=== PATIENT | male | born 1980 | race Caucasian/White ===

== ENCOUNTER → 2017-08-15 | Outpatient (CLI) | payer BC ==
--- NOTE | 2017-08-15 09:00 | US ---
EXAMINATION TYPE: US abdomen complete DATE OF EXAM: 08/15/2017 COMPARISON: NONE CLINICAL HISTORY: rt upper quad pain R10.11. Patient stated was told he had elevated liver function t ests; on medication for antiseizure and low dose antihypertension EXAM MEASUREMENTS: Liver Length: 17.2 cm Gallbladder Wall: 0.2 cm CBD: 0.3 cm Spleen: 11.2 cm Right Kidney: 11.1 x 6.5 x 4.5 cm Left Kidney: 12.2 x 7.3 x 5.1 cm Pancreas: hyperechoic with hypoechoic and heterogeneous area mid pancreas = 1.6 x 2.2 x 0.7cm Liver: hyperechoic to right renal cortex suggests fatty liver Gallbladder: wnl Evidence for sonographic Silver's sign: No CBD: wnl Spleen: wnl Right Kidney: wnl Left Kidney: wnl Upper IVC: wnl Abd Aorta: wnl IMPRESSION: 1. There is a subtle hypoechoic area within the pancreas. Additional evaluation with contrast CT is r ecommended. Neoplasm is not excluded at this time.
== END | disposition home or self-care (01) ==
LOC: RADUSWWP 08:11
PROVIDERS: ATTEND Family Medicine
DX: R10.11 Right upper quadrant pain (principal)
CPT/HCPCS: 76700

== ENCOUNTER → 2017-09-04 | Outpatient (CLI) | payer BC ==
--- NOTE | 2017-09-04 13:04 | CT ---
EXAMINATION TYPE: CT abdomen w con DATE OF EXAM: 09/04/2017 COMPARISON: 08/15/2017 abdominal ultrasound. HISTORY: Elevated Liver Enzymes; Possible pancreas neoplasm CT DLP: 731.7 mGycm Automated exposure control for dose reduction was used. TECHNIQUE: Helical acquisition of images was performed from the lung bases through the top of iliac crest to include entire abdomen. CONTRAST: Performed with Oral Contrast and with IV Contrast, patient injected with 100 Ml mL of Isovue 300. FINDINGS: LUNG BASES: No significant abnormality is appreciated. LIVER/GB: Hepatic parenchyma is diffusely hypoattenuated in comparison to that of the spleen, most co mmonly seen in hepatic steatosis. This finding limits evaluation for hepatic masses. No gross evidenc e of hepatic mass is seen. No intrahepatic biliary ductal dilatation. No cholelithiasis PANCREAS: Pancreas enhances homogeneously. There is slight prominence of the pancreatic body of an ex ophytic portion of parenchyma towards the pancreatic tail on series 3 image 61 and prominence of the pancreatic head abutting the descending duodenum, however enhancement is again homogeneous without fo liz lesion or ductal dilatation identified. No peripancreatic fluid or fat stranding. No peripancreat ic adenopathy. No pancreatic calcifications. SPLEEN: Spleen is enlarged measuring 15.0 cm in anterior posterior dimension. ADRENALS: Adrenal glands demonstrate no evidence of nodule. KIDNEYS: Kidneys enhance symmetrically without hydronephrosis. BOWEL: No large or small bowel dilatation is seen. LYMPH NODES: No greater than 1 cm short axis lymph node within the abdomen or pelvis. OSSEOUS STRUCTURES: No significant abnormality is seen. FREE AIR: No free air is visualized. IMPRESSION: 1. NO EVIDENCE OF ABNORMAL PANCREATIC ENHANCEMENT OR DUCTAL DILATATION TO SUGGEST PANCREATIC MASS. PA NCREAS IS UNREMARKABLE ON CT. 2. HEPATIC STEATOSIS. 3. SPLENOMEGALY.
== END ==
LOC: RADCTMAIN 11:28
PROVIDERS: ATTEND Family Medicine
DX: D49.0 Neoplasm of unspecified behavior of digestive system (principal); K76.0 Fatty (change of) liver, not elsewhere classified; R16.1 Splenomegaly, not elsewhere classified
CPT/HCPCS: 74160; Q9967

== ENCOUNTER 2017-11-07 13:25 | Emergency (ER) | payer BC ==
[2017-11-07] MEDS ORDERED: SODIUM CHLORIDE 0.9% 500 ML IV STA (13:40)
[2017-11-07 13:52] LABS: Basophils % (A) 1 %; Eosinophils # (A) 0.1 k/uL (0-0.7); Eosinophils % (A) 2 %; HCT 47.5 % (39.0-53.0); HGB 16.9 gm/dL (13.0-17.5); Lymphocytes # (A) 1.3 k/uL (1.0-4.8); Lymphocytes % (A) 27 %; MCH 32.7 pg (25.0-35.0); MCHC 35.6 g/dL (31.0-37.0); MCV 91.9 fL (80.0-100.0); Mean Platelet Volume 6.9; Monocytes # (A) 0.2 k/uL (0-1.0); Monocytes % (A) 4 %; Neutrophils # (A) 3.2 k/uL (1.3-7.7); Neutrophils % (A) 65 %; Platelet Count 167 k/uL (150-450); RBC 5.17 m/uL (4.30-5.90); RDW 12.5 % (11.5-15.5); WBC 4.8 k/uL (3.8-10.6)
[2017-11-07 14:02] LABS: ALT 96 U/L (21-72); AST 110 U/L (17-59); Albumin 4.8 g/dL (3.5-5.0); Alkaline Phosphatase 73 U/L (38-126); Anion Gap 12 mmol/L; Blood Urea Nitrogen 9 mg/dL (9-20); Calcium 9.7 mg/dL (8.4-10.2); Carbon Dioxide 22 mmol/L (22-30); Chloride 108 mmol/L (98-107); Glucose 120 mg/dL (74-99); Potassium 3.8 mmol/L (3.5-5.1); Sodium 142 mmol/L (137-145); Total Bilirubin 0.8 mg/dL (0.2-1.3); Total Protein 7.6 g/dL (6.3-8.2)
[2017-11-07 14:21] LABS: Carbamazepine (Tegretol) <3.0 ug/mL
--- NOTE | 2017-11-07 14:52 | ED ---
Seizure HPI - General Chief Complaint: Seizure Stated Complaint: seizure Time Seen by Provider: 11/07/17 13:40 Source: patient, family, RN notes reviewed Mode of arrival: ambulatory Limitations: no limitations - History of Present Illness Initial Comments: 37-year-old male presents emergency department for seizure. Patient has known history of seizures, sees Dr. Perry. Patient states that he felt that he doesn 't have seizure and his started shaking him. Patient states that is not believe he had a full seizure. Patient denies any current complaints including headache, dizziness, chest pain, shortness breath, nausea, vomiting diarrhea constipation. Patient states that he does take Tegretol. Patient denies missing any doses. Patient offers no complaints. - Related Data Home Medications Medication Instructions Recorded Confirmed OXcarbazepine [Trileptal] 300 mg PO BID@1200,2130 11/07/17 11/07/17 Vitamin B Complex 1 cap PO DAILY@1530 11/07/17 11/07/17 amLODIPine [Norvasc] 10 mg PO DAILY@1200 11/07/17 11/07/17 Allergies Allergy/AdvReac Type Severity Reaction Status Date / Time divalproex sodium AdvReac SEE Verified 11/07/17 14:31 [From Depakote] COMMENTS Review of Systems ROS Statement: Those systems with pertinent positive or pertinent negative responses have been documented in the HPI. ROS Other: All systems not noted in ROS Statement are negative. Past Medical History Past Medical History: Seizure Disorder History of Any Multi-Drug Resistant Organisms: None Reported Past Surgical History: No Surgical Hx Reported Past Psychological History: No Psychological Hx Reported Smoking Status: Current every day smoker Past Alcohol Use History: Daily Past Drug Use History: None Reported General Exam Limitations: no limitations General appearance: alert, in no apparent distress Head exam: Present: atraumatic, normocephalic, normal inspection Eye exam: Present: normal appearance, PERRL, EOMI. Absent: scleral icterus, conjunctival injection, periorbital swelling ENT exam: Present: normal exam, normal oropharynx, mucous membranes moist, TM's normal bilaterally Neck exam: Present: normal inspection, full ROM. Absent: tenderness, meningismus, lymphadenopathy Respiratory exam: Present: normal lung sounds bilaterally. Absent: respiratory distress, wheezes, rales, rhonchi, stridor Cardiovascular Exam: Present: regular rate, normal rhythm, normal heart sounds. Absent: systolic murmur, diastolic murmur, rubs, gallop, clicks GI/Abdominal exam: Present: soft, normal bowel sounds. Absent: distended, tenderness, guarding, rebound, rigid Neurological exam: Present: alert, oriented X3, CN II-XII intact, reflexes normal. Absent: motor sensory deficit Skin exam: Present: warm, dry, intact, normal color. Absent: rash Course Vital Signs 11/07/17 13:32 Temperature 97.6 F Pulse Rate 106 H Respiratory 20 Rate Blood Pressure 162/93 O2 Sat by Pulse 94 L Oximetry Medical Decision Making - Medical Decision Making 37-year-old male presented for seizure. He does have a known history of seizures. Patient is stable at this time he'll be discharged with follow-up with his neurologist. - Lab Data Result diagrams: 11/07/17 13:39 11/07/17 13:39 Lab Results 11/07/17 11/07/17 Range/Units 13:39 13:39 WBC 4.8 (3.8-10.6) k/uL RBC 5.17 (4.30-5.90) m/uL Hgb 16.9 (13.0-17.5) gm/dL Hct 47.5 (39.0-53.0) % MCV 91.9 (80.0-100.0) fL MCH 32.7 (25.0-35.0) pg MCHC 35.6 (31.0-37.0) g/dL RDW 12.5 (11.5-15.5) % Plt Count 167 (150-450) k/uL Neutrophils % 65 % Lymphocytes % 27 % Monocytes % 4 % Eosinophils % 2 % Basophils % 1 % Neutrophils # 3.2 (1.3-7.7) k/uL Lymphocytes # 1.3 (1.0-4.8) k/uL Monocytes # 0.2 (0-1.0) k/uL Eosinophils # 0.1 (0-0.7) k/uL Basophils # 0.0 (0-0.2) k/uL Sodium 142 (137-145) mmol/L Potassium 3.8 (3.5-5.1) mmol/L Chloride 108 H (98-107) mmol/L Carbon Dioxide 22 (22-30) mmol/L Anion Gap 12 mmol/L BUN 9 (9-20) mg/dL Creatinine 0.63 L (0.66-1.25) mg/dL Est GFR (CKD-EPI)AfAm >90 (>60 ml/min/1.73 sqM) Est GFR (CKD-EPI)NonAf >90 (>60 ml/min/1.73 sqM) Glucose 120 H (74-99) mg/dL Calcium 9.7 (8.4-10.2) mg/dL Total Bilirubin 0.8 (0.2-1.3) mg/dL AST 110 H (17-59) U/L ALT 96 H (21-72) U/L Alkaline Phosphatase 73 (38-126) U/L Total Protein 7.6 (6.3-8.2) g/dL Albumin 4.8 (3.5-5.0) g/dL Carbamazepine <3.0 ug/mL - EKG Data EKG Comments: EKG performed at 14:01 normal sinus rhythm rate of 84 AK 168 QRS 98 QT/QTC 362/ 427 Disposition Clinical Impression: Generalized seizure Disposition: HOME SELF-CARE Condition: Stable Instructions: Recurrent Seizures in Adults (ED) Additional Instructions: Please return to the Emergency Department if symptoms worsen or any other concerns. Is patient prescribed a controlled substance at d/c from ED?: No Referrals: Gómez Winkler DO [Primary Care Provider] - 1-2 days Time of Disposition: 14:52
[2017-11-07 15:14] VITALS: BP 156/87; PULSE 67; RESP 18; TEMP 97.4
== END 2017-11-07 15:14 | disposition home or self-care (01) ==
LOC: EC 13:25
DX: G40.409 Other generalized epilepsy and epileptic syndromes, not intractable, without status epilepticus (principal); F17.200 Nicotine dependence, unspecified, uncomplicated; Z79.899 Other long term (current) drug therapy; Z88.8 Allergy status to other drugs, medicaments and biological substances
CPT/HCPCS: 36415; 80053; 80156; 85025; 93005; 96360; 99284

== ENCOUNTER 2018-06-26 13:28 | Emergency (ER) | payer BC ==
--- NOTE | 2018-06-26 14:07 | ED ---
General Adult HPI - General Chief complaint: Seizure Stated complaint: Seizure, fall Time Seen by Provider: 06/26/18 13:41 Source: patient, family, RN notes reviewed, old records reviewed Mode of arrival: ambulatory Limitations: no limitations - History of Present Illness Initial comments: 38-year-old male patient with past medical history of epilepsy, seizure disorder presents to ED after having a breakthrough seizure. Patient reports that he was sitting on his toilet when he felt that he is going to have a seizure, patient reports that during the seizure process he slipped 4, hitting his head on a bathtub. As well as hitting his left flank on the bathtub. Patient denies any loss of consciousness. Patient was given Hospital by . Patient states that he feels that he is slightly postictal, however is answering all questions appropriately. Denies any headache or change in vision. Does report some mild neck stiffness. Complains of some left flank pain. Denies any shortness of breath or any abdominal pain. Denies any other complaints. Patient is currently taking Trileptal for his seizures. Systemic: Pt denies fatigue, myalgia, fever/chills, rash. Pt denies weakness, night sweats, weight loss. Neuro: Pt denies headache, visual disturbances, syncope or pre-syncope. HEENT: Pt denies ocular discharge or irritation, otalgia, rhinorrhea, pharyngitis or notable lymphadenopathy. Cardiopulmonary: Pt denies chest pain, SOB, heart palpitations, dyspnea on exertion. Abdominal/GI: Pt denies abdominal pain, n/v/d. : Pt denies dysuria, burning w/ urination, frequency/urgency. Denies new onset urinary or bowel incontinence. MSK: Pt denies myalgia, loss of strength or function in extremities. Neuro: Pt denies new onset weakness, paresthesias. - Related Data Home Medications Medication Instructions Recorded Confirmed OXcarbazepine [Trileptal] 450 mg PO BID 11/07/17 06/26/18 Vitamin B Complex 1 cap PO DAILY@1530 11/07/17 06/26/18 Allergies Allergy/AdvReac Type Severity Reaction Status Date / Time divalproex sodium AdvReac SEE Verified 06/26/18 14:00 [facility] COMMENTS Review of Systems ROS Statement: Those systems with pertinent positive or pertinent negative responses have been documented in the HPI. ROS Other: All systems not noted in ROS Statement are negative. Past Medical History Past Medical History: Seizure Disorder History of Any Multi-Drug Resistant Organisms: None Reported Past Surgical History: No Surgical Hx Reported Past Psychological History: No Psychological Hx Reported Smoking Status: Current every day smoker Past Alcohol Use History: Daily Past Drug Use History: None Reported General Exam - General Exam Comments Initial Comments: Constitutional: NAD, AOX3, Pt has pleasant affect. HEENT: NC/AT, trachea midline, neck supple, no lymphadenopathy. Posterior pharynx non erythematous, without exudates. External ears appear normal, without discharge. Mucous membranes moist. Eyes PERRLA, EOM intact. There is no scleral icterus. No pallor noted. Cardiopulmonary: RRR, no murmurs, rubs or gallops, no JVD noted. Lungs CTAB in anterior and posterior serrano. No peripheral edema. Abdominal exam: Abdomen soft and non-distended. Abdomen non-tender to palpation in all 4 quadrants. Bowel sounds active in LLQ. No hepatosplenomegaly. No ecchymosis Neuro: CN II-XII intact. No nuchal rigidity. No cerical spinal tenderness/ MSK: No posterior calf tenderness bilaterally, homans sign negative bilaterally. Posterior tibialis and radial pulse +2 bilaterally. Sensation intact in upper and lower extremities. Full active ROM in upper and lower extremities, 5/5 stregnth. Limitations: no limitations Course Vital Signs 06/26/18 06/26/18 13:33 16:31 Temperature 98.6 F 97.9 F Pulse Rate 104 H 84 Respiratory 20 19 Rate Blood Pressure 143/82 144/96 O2 Sat by Pulse 93 L 98 Oximetry Medical Decision Making - Medical Decision Making 38-year-old male patient with past medical history of epilepsy, seizure disorder presents to ED after having a breakthrough seizure. Patient reports that he was sitting on his toilet when he felt that he is going to have a seizure, patient reports that during the seizure process he slipped 4, hitting his head on a bathtub. As well as hitting his left flank on the bathtub. Patient denies any loss of consciousness. Patient was given Hospital by . Patient states that he feels that he is slightly postictal, however is answering all questions appropriately. Denies any headache or change in vision. Does report some mild neck stiffness. Complains of some left flank pain. Denies any shortness of breath or any abdominal pain. Denies any other complaints. Patient is currently taking Trileptal for his seizures. Patient vital signs stable, afebrile. Neurologic exam within normal limits. Lungs sounds equal bilaterally. Left flank region mildly tender to palpation. No ecchymoses. EKG not concerning for acute ischemia. CBC non-impressive. CMP revealed mildly elevated since and liver enzymes. CT brain C-spine did not display pathology. Plain film of left rib and PA chest x-ray displayed possiblefracture of seventh anterolateral rib. Patient will be discharged with incentive spirometry and neurology follow-up. Patient to follow up with his neurologist in 1-2 days. Pa tient will not drive for at least 6 months or until clearance from neurology. Patient return to ER if condition worsens in any way. Case discussed with Dr. Ni. - Lab Data Result diagrams: 06/26/18 14:12 06/26/18 14:12 Lab Results 06/26/18 06/26/18 06/26/18 Range/Units 14:12 14:12 14:22 WBC 6.0 (3.8-10.6) k/uL RBC 5.37 (4.30-5.90) m/uL Hgb 17.5 (13.0-17.5) gm/dL Hct 51.4 (39.0-53.0) % MCV 95.7 (80.0-100.0) fL MCH 32.6 (25.0-35.0) pg MCHC 34.1 (31.0-37.0) g/dL RDW 12.3 (11.5-15.5) % Plt Count 155 (150-450) k/uL Neutrophils % 74 % Lymphocytes % 18 % Monocytes % 5 % Eosinophils % 1 % Basophils % 0 % Neutrophils # 4.4 (1.3-7.7) k/uL Lymphocytes # 1.1 (1.0-4.8) k/uL Monocytes # 0.3 (0-1.0) k/uL Eosinophils # 0.1 (0-0.7) k/uL Basophils # 0.0 (0-0.2) k/uL Sodium 139 (137-145) mmol/L Potassium 4.8 (3.5-5.1) mmol/L Chloride 108 H (98-107) mmol/L Carbon Dioxide 23 (22-30) mmol/L Anion Gap 8 mmol/L BUN 8 L (9-20) mg/dL Creatinine 0.76 (0.66-1.25) mg/dL Est GFR (CKD-EPI)AfAm >90 (>60 ml/min/1.73 sqM) Est GFR (CKD-EPI)NonAf >90 (>60 ml/min/1.73 sqM) Glucose 104 H (74-99) mg/dL POC Glucose (mg/dL) 111 H (75-99) mg/dL POC Glu [employer] [place] Calcium 10.0 (8.4-10.2) mg/dL Total Bilirubin 1.1 (0.2-1.3) mg/dL AST 162 H (17-59) U/L ALT 133 H (21-72) U/L Alkaline Phosphatase 99 (38-126) U/L Total Protein 7.7 (6.3-8.2) g/dL Albumin 4.8 (3.5-5.0) g/dL - EKG Data -: EKG Interpreted by Me (and dr ni) EKG Comments: Ventricular rate 89,. And 46, QRS 98, QT/QTC 350/425. Normal sinus rhythm. no concern for acute ischemia. Disposition Clinical Impression: Seizure Disposition: HOME SELF-CARE Condition: Stable Instructions (If sedation given, give patient instructions): Recurrent Seizures in Adults (ED) Additional Instructions: Patient to adhere to previously discussed treatment plan and will take medication(s) as directed. Patient to follow up with PCP in 1-2 days. Patient to return to ED if symptoms do not improve. Follow-up with his neurologist tomorrow. Return to ER if condition worsens. Do not drive for 6 months or until clearance from neurology. USe incentive spirometry 10 times per hour. Follow-up with primary care provider in 1-2 days. Is patient prescribed a controlled substance at d/c from ED?: No Referrals: Gómez Winkler DO [Primary Care Provider] - 1-2 days
[2018-06-26 14:25] LABS: Glucose,Whole Blood 111 mg/dL (75-99)
[2018-06-26 14:27] LABS: Basophils % (A) 0 %; Eosinophils # (A) 0.1 k/uL (0-0.7); Eosinophils % (A) 1 %; HCT 51.4 % (39.0-53.0); HGB 17.5 gm/dL (13.0-17.5); Lymphocytes # (A) 1.1 k/uL (1.0-4.8); Lymphocytes % (A) 18 %; MCH 32.6 pg (25.0-35.0); MCHC 34.1 g/dL (31.0-37.0); MCV 95.7 fL (80.0-100.0); Mean Platelet Volume 6.8; Monocytes # (A) 0.3 k/uL (0-1.0); Monocytes % (A) 5 %; Neutrophils # (A) 4.4 k/uL (1.3-7.7); Neutrophils % (A) 74 %; Platelet Count 155 k/uL (150-450); RBC 5.37 m/uL (4.30-5.90); RDW 12.3 % (11.5-15.5)
[2018-06-26 14:35] LABS: ALT 133 U/L (21-72); AST 162 U/L (17-59); Albumin 4.8 g/dL (3.5-5.0); Alkaline Phosphatase 99 U/L (38-126); Anion Gap 8 mmol/L; Blood Urea Nitrogen 8 mg/dL (9-20); Carbon Dioxide 23 mmol/L (22-30); Chloride 108 mmol/L (98-107); Glucose 104 mg/dL (74-99); Potassium 4.8 mmol/L (3.5-5.1); Sodium 139 mmol/L (137-145); Total Bilirubin 1.1 mg/dL (0.2-1.3); Total Protein 7.7 g/dL (6.3-8.2)
--- NOTE | 2018-06-26 15:10 | CT ---
EXAMINATION TYPE: CT brain cspine wo con DATE OF EXAM: 06/26/2018 COMPARISON: CT brain October 19, 2015. HISTORY: Seizure and fell injury with headache and neck pain CT DLP: 1410.5 mGycm. Automated Exposure Control for Dose Reduction was Utilized. TECHNIQUE: CT scan of the head and cervical spine are performed without contrast. FINDINGS: There is no acute intracranial hemorrhage, mass effect, or midline shift identified. The ventricles and sulci are within normal limits in size. The globes are intact and the visualized sin uses are clear. The calvarium is intact. Cervical spine is visualized in its entirety from C1 through upper thoracic levels and demonstrates s atisfactory alignment without evidence of acute fracture or dislocation. Prevertebral soft tissue ap pears within normal limits. The C1-C2 articulation is within normal limits on the coronal images. Ve rtebral body heights and disc space heights are maintained. No large posterior disc herniations are p resent. Axial images are both within normal limits. Thyroid gland is normal in size. Lung apices are clear. IMPRESSION: 1. There is no acute fracture or dislocation evident in the cervical spine. 2. No acute intracranial hemorrhage or midline shift is seen.
--- NOTE | 2018-06-26 16:16 | XR ---
EXAMINATION TYPE: XR ribs LT w pa chest xray DATE OF EXAM: 06/26/2018 CLINICAL HISTORY: Chest and left-sided rib pain after fall injury today. TECHNIQUE: Single frontal view of the chest is obtained. A funnellike images left-sided ribs are acqu ired. COMPARISON: Chest x-ray September 30, 2010. FINDINGS: There is no focal air space opacity, pleural effusion, or pneumothorax seen. The cardiac silhouette size is within normal limits. The osseous structures are intact. Overlying EKG leads are present. Dedicated images left-sided ribs show persistent vertical lucency suspicious for nondisplaced fractur e involving the left anterolateral seventh rib and T2 images. Overlying soft tissue is unremarkable. IMPRESSION: 1. No acute cardiopulmonary process. 2. Suspect acute nondisplaced fracture involving anterolateral left seventh rib.
[2018-06-26 16:32] VITALS: BP 144/96; PULSE 84; RESP 19
[2018-06-26 17:00] VITALS: TEMP 97.9
[2018-06-26] MEDS ORDERED: LIDOCAINE 5% PATCH TOPICAL STA (17:15)
== END 2018-06-26 17:22 | disposition home or self-care (01) ==
LOC: EC 13:28
DX: G40.909 Epilepsy, unspecified, not intractable, without status epilepticus (principal); F17.200 Nicotine dependence, unspecified, uncomplicated; Z79.899 Other long term (current) drug therapy; Z88.8 Allergy status to other drugs, medicaments and biological substances
CPT/HCPCS: 36415; 70450; 72125; 80053; 80183; 85025; 93005; 99285

== ENCOUNTER 2024-05-25 08:55 | Inpatient (IN) | payer BC ==
[2024-05-25] MEDS: SODIUM CHLORIDE 0.9% 1,000 ML IV ONE (09:12)
[2024-05-25 09:19] LABS: Basophils % (A) 0 %; Eosinophils # (A) 0.1 k/uL (0-0.7); Eosinophils % (A) 1 %; HCT 32.8 % (39.0-53.0); HGB 11.1 gm/dL (13.0-17.5); Lymphocytes # (A) 2.2 k/uL (1.0-4.8); Lymphocytes % (A) 27 %; MCH 32.5 pg (25.0-35.0); MCV 95.9 fL (80.0-100.0); Mean Platelet Volume 7.7; Monocytes # (A) 0.5 k/uL (0-1.0); Monocytes % (A) 6 %; Neutrophils # (A) 5.1 k/uL (1.3-7.7); Neutrophils % (A) 63 %; Platelet Count 153 k/uL (150-450); RBC 3.42 m/uL (4.30-5.90); RDW 13.1 % (11.5-15.5)
--- NOTE | 2024-05-25 09:28 | ED ---
General Adult HPI - General Chief complaint: Dizziness Stated complaint: Dizziness Time Seen by Provider: 05/25/24 08:57 Source: patient, EMS, RN notes reviewed, old records reviewed Mode of arrival: EMS Limitations: no limitations - History of Present Illness Initial comments: 44-year-old male presents for evaluation of lightheadedness after several day history of nausea vomiting diarrhea. Patient developed diarrhea starting 2 days prior which has been consistent. He is also had 2 total episodes of vomiting 1 2 days ago and 1 this morning. He denies current abdominal pain. Denies fever. Denies known sick contact. Patient was hypotensive after IV start by paramedics but has returned to normal blood pressure at the time my evaluation. - Related Data Home Medications Medication Instructions Recorded Confirmed OXcarbazepine [Trileptal] 750 mg PO BID 11/07/17 05/25/24 lisinopriL [Zestril] 10 mg PO DAILY@1200 05/25/24 05/25/24 Allergies Allergy/AdvReac Type Severity Reaction Status Date / Time ondansetron [From Zofran] Allergy Hallucinati Verified 05/25/24 10:26 ons divalproex sodium AdvReac SEE Verified 05/25/24 10:26 [From Depakote] COMMENTS Review of Systems ROS Statement: Those systems with pertinent positive or pertinent negative responses have been documented in the HPI. ROS Other: All systems not noted in ROS Statement are negative. Past Medical History Past Medical History: Hypertension, Seizure Disorder History of Any Multi-Drug Resistant Organisms: None Reported Past Surgical History: No Surgical Hx Reported Past Psychological History: No Psychological Hx Reported Smoking Status: Never smoker Past Alcohol Use History: Daily Past Drug Use History: None Reported General Exam Limitations: no limitations General appearance: alert, in no apparent distress Head exam: Present: atraumatic, normocephalic Eye exam: Present: normal appearance, PERRL ENT exam: Present: mucous membranes dry Neck exam: Present: normal inspection. Absent: tenderness, meningismus Respiratory exam: Present: normal lung sounds bilaterally, respiratory distress Cardiovascular Exam: Present: regular rate, normal rhythm GI/Abdominal exam: Present: soft. Absent: distended, tenderness, guarding Extremities exam: Present: normal inspection, normal capillary refill Neurological exam: Present: alert, oriented X3, CN II-XII intact. Absent: motor sensory deficit Psychiatric exam: Present: normal affect, normal mood Skin exam: Present: warm, dry, intact Course Vital Signs 05/25/24 05/25/24 05/25/24 08:56 09:44 11:00 Temperature 98.3 F Pulse Rate 101 H 75 96 Respiratory 20 20 20 Rate Blood Pressure 119/76 121/76 115/62 O2 Sat by Pulse 97 98 98 Oximetry 05/25/24 11:47 Temperature Pulse Rate 90 Respiratory 20 Rate Blood Pressure 115/82 O2 Sat by Pulse 98 Oximetry Medical Decision Making - Medical Decision Making Was pt. sent in by a medical professional or institution (, [facility], [facility], urgent care, hospital, or shelter...) When possible be specific @ -No Did you speak to anyone other than the patient for history (EMS, parent, family, police, friend...)? What history was obtained from this source @ -No Did you review nursing and triage notes (agree or disagree)? Why? @ -I reviewed and agree with nursing and triage notes Were old charts reviewed (outside hosp., previous admission, EMS record, old EKG, old radiological studies, urgent care reports/EKG's, shelter records)? Report findings @ -No old charts were reviewed Differential GI Bleed: Esophageal varices, aortoenteric fistula, Lissa-Cook, gastritis, peptic ulcer disease, diverticulosis, inflammatory bowel disease, hemorrhoids, fissure, colitis, malignancy, Meckel's diverticulum, this is not meant to be an all-inclusive list. EKG interpreted by me (3pts min.). @ -Sinus rhythm rate of 88, DE interval 161, QRS duration 94, QTc [address] segment changes. X-rays interpreted by me (1pt min.). @ -None done CT interpreted by me (1pt min.). @ -None done U/S interpreted by me (1pt. min.). @ -None done What testing was considered but not performed or refused? (CT, X-rays, U/S, labs)? Why? @ -None What meds were considered but not given or refused? Why? @ -None Did you discuss the management of the patient with other professionals (professionals i.e. [facility] Asif, [facility] [employer], lab, RT, psych nurse, social worker assistant, turning sander tender, t eacher, county health officer, case investigator)? Give summary @ -[Case discussed with Dr. You, will see the patient in consultation for suspected upper GI bleed, case discussed with Dr. Zuniga who will admit. Was smoking cessation discussed for >3mins.? @ -No Was critical care preformed (if so, how long)? @ -yes, 35 min Were there social determinants of health that impacted care today? How? (Homelessness, low income, unemployed, alcoholism, drug addiction, transportation, low edu. Level, literacy, decrease access to med. care, senior care, rehab)? @ -No Was there de-escalation of care discussed even if they declined (Discuss DNR or withdrawal of care, Hospice)? DNR status @ -No What co-morbidities impacted this encounter? (DM, HTN, Smoking, COPD, CAD, Cancer, CVA, ARF, Chemo, Hep., AIDS, mental health diagnosis, sleep apnea, morbid obesity)? @ -Moderate daily alcohol intake, 2-3 beers daily] Was patient admitted / discharged? Hospital course, mention meds given and route, prescriptions, significant lab abnormalities, going to OR and other pertinent info. @ -[44-year-old male with nausea vomiting diarrhea. Patient has had several episodes of dark stool and noted some concern for dark material within his vomit. He has no prior history of gastrointestinal hemorrhage, no history of ulcers. He does admit to mild to moderate alcohol consumption 2 or 3 beers daily. Denies history of esophageal varices. Patient has an initial hemoglobin of 11 with the only recent prior from 2019 which was 17. He had been started on Protonix in the emergency department. He will be admitted for monitoring of suspected upper GI bleed. Undiagnosed new problem with uncertain prognosis? @ -No Drug Therapy requiring intensive monitoring for toxicity (Heparin, Nitro, Insulin, Cardizem)? @ -No Were any procedures done? @ -No Diagnosis/symptom? @ -Melanotic stool, concern for upper GI bleed Acute, or Chronic, or Acute on Chronic? @Acute Uncomplicated (without systemic symptoms) or Complicated (systemic symptoms)? @ -Default Side effects of treatment? @ -No Exacerbation, Progression, or Severe Exacerbation? @ -No Poses a threat to life or bodily function? How? (Chest pain, USA, IA, pneumonia, PE, COPD, DKA, ARF, appy, cholecystitis, CVA, Diverticulitis, Homicidal, Suicidal, threat to staff... and all critical care pts) @Yes, GI bleed, hemorrhagic shock - Lab Data Result diagrams: 05/25/24 10:29 05/25/24 09:09 Lab Results 05/25/24 05/25/24 05/25/24 Range/Units 09:09 09:09 10:29 WBC 8.0 9.7 (3.8-10.6) k/uL RBC 3.42 L 3.28 L (4.30-5.90) m/uL Hgb 11.1 L 10.6 L (13.0-17.5) gm/dL Hct 32.8 L 31.7 L (39.0-53.0) % MCV 95.9 96.6 (80.0-100.0) fL MCH 32.5 32.4 (25.0-35.0) pg MCHC 34.0 33.6 (31.0-37.0) g/dL RDW 13.1 13.5 (11.5-15.5) % Plt Count 153 118 L (150-450) k/uL MPV 7.7 9.2 Neutrophils % 63 79 % Lymphocytes % 27 14 % Monocytes % 6 4 % Eosinophils % 1 2 % Basophils % 0 0 % Neutrophils # 5.1 7.7 (1.3-7.7) k/uL Lymphocytes # 2.2 1.3 (1.0-4.8) k/uL Monocytes # 0.5 0.4 (0-1.0) k/uL Eosinophils # 0.1 0.2 (0-0.7) k/uL Basophils # 0.0 0.0 (0-0.2) k/uL Sodium 134 L (137-145) mmol/L Potassium 4.1 (3.5-5.1) mmol/L Chloride 102 (98-107) mmol/L Carbon Dioxide 23 (22-30) mmol/L Anion Gap 9 mmol/L BUN 30 H (9-20) mg/dL Creatinine 0.71 (0.66-1.25) mg/dL Est GFR (CKD-EPI)AfAm >90 (>60 ml/min/1.73 sqM) Est GFR (CKD-EPI)NonAf >90 (>60 ml/min/1.73 sqM) Glucose 137 H (74-99) mg/dL Calcium 9.2 (8.4-10.2) mg/dL Total Bilirubin 1.8 H (0.2-1.3) mg/dL AST 36 (17-59) U/L ALT 43 (4-49) U/L Alkaline Phosphatase 45 (38-126) U/L Total Protein 6.1 L (6.3-8.2) g/dL Albumin 3.8 (3.5-5.0) g/dL Stool Occult Blood (Negative) 05/25/24 Range/Units 11:42 WBC (3.8-10.6) k/uL RBC (4.30-5.90) m/uL Hgb (13.0-17.5) gm/dL Hct (39.0-53.0) % MCV (80.0-100.0) fL MCH (25.0-35.0) pg MCHC (31.0-37.0) g/dL RDW (11.5-15.5) % Plt Count (150-450) k/uL MPV Neutrophils % % Lymphocytes % % Monocytes % % Eosinophils % % Basophils % % Neutrophils # (1.3-7.7) k/uL Lymphocytes # (1.0-4.8) k/uL Monocytes # (0-1.0) k/uL Eosinophils # (0-0.7) k/uL Basophils # (0-0.2) k/uL Sodium (137-145) mmol/L Potassium (3.5-5.1) mmol/L Chloride (98-107) mmol/L Carbon Dioxide (22-30) mmol/L Anion Gap mmol/L BUN (9-20) mg/dL Creatinine (0.66-1.25) mg/dL Est GFR (CKD-EPI)AfAm (>60 ml/min/1.73 sqM) Est GFR (CKD-EPI)NonAf (>60 ml/min/1.73 sqM) Glucose (74-99) mg/dL Calcium (8.4-10.2) mg/dL Total Bilirubin (0.2-1.3) mg/dL AST (17-59) U/L ALT (4-49) U/L Alkaline Phosphatase (38-126) U/L Total Protein (6.3-8.2) g/dL Albumin (3.5-5.0) g/dL Stool Occult Blood Positive (Negative) Critical Care Time Critical Care Time: Yes Total Critical Care Time: 35 Disposition Clinical Impression: Dehydration, Melanotic stools, Upper GI bleed Disposition: ADMITTED IP TO THIS [facility] Condition: Stable Is patient prescribed a controlled substance at d/c from ED?: No Referrals: None,Stated [Primary Care Provider] - 1-2 days Time of Disposition: 12:15
[2024-05-25 09:36] LABS: ALT 43 U/L (4-49); AST 36 U/L (17-59); African American GFR (CKD) >90 (>60 ml/min/1.73 sqM); Albumin 3.8 g/dL (3.5-5.0); Alkaline Phosphatase 45 U/L (38-126); Anion Gap 9 mmol/L; Blood Urea Nitrogen 30 mg/dL (9-20); Calcium 9.2 mg/dL (8.4-10.2); Carbon Dioxide 23 mmol/L (22-30); Chloride 102 mmol/L (98-107); Glucose 137 mg/dL (74-99); Non-African American GFR(CKD) >90 (>60 ml/min/1.73 sqM); Potassium 4.1 mmol/L (3.5-5.1); Sodium 134 mmol/L (137-145); Total Bilirubin 1.8 mg/dL (0.2-1.3); Total Protein 6.1 g/dL (6.3-8.2)
[2024-05-25] MEDS: SODIUM CHLORIDE 0.9% 500 ML 500 ML IV ONE (10:29)
[2024-05-25] MEDS: PANTOPRAZOLE 40 MG/10 ML VIAL IVP STA ×2 (10:29→11:44)
[2024-05-25 10:37] LABS: Basophils % (A) 0 %; Eosinophils # (A) 0.2 k/uL (0-0.7); Eosinophils % (A) 2 %; HCT 31.7 % (39.0-53.0); HGB 10.6 gm/dL (13.0-17.5); Lymphocytes # (A) 1.3 k/uL (1.0-4.8); Lymphocytes % (A) 14 %; MCH 32.4 pg (25.0-35.0); MCHC 33.6 g/dL (31.0-37.0); MCV 96.6 fL (80.0-100.0); Mean Platelet Volume 9.2; Monocytes # (A) 0.4 k/uL (0-1.0); Monocytes % (A) 4 %; Neutrophils # (A) 7.7 k/uL (1.3-7.7); Neutrophils % (A) 79 %; Platelet Count 118 k/uL (150-450); RBC 3.28 m/uL (4.30-5.90); RDW 13.5 % (11.5-15.5); WBC 9.7 k/uL (3.8-10.6)
[2024-05-25] MEDS: SODIUM CHLORIDE 0.9% 1,000 ML IV SCH (11:45)
[2024-05-25] MEDS ORDERED: NALOXONE 0.4 MG/ML 1 ML VIAL IV PRN (12:10)
[2024-05-25] MEDS ORDERED: HYDROmorphone 0.5 MG/0.5 ML SYRINGE IVP PRN (12:10)
[2024-05-25] MEDS ORDERED: SODIUM CHLORIDE 0.9% 1,000 ML IV SCH (12:15)
[2024-05-25 12:37] LABS: Basophils % (A) 0 %; Eosinophils % (A) 0 %; HCT 29.9 % (39.0-53.0); HGB 10.2 gm/dL (13.0-17.5); Lymphocytes # (A) 1.4 k/uL (1.0-4.8); Lymphocytes % (A) 17 %; MCH 32.5 pg (25.0-35.0); MCHC 34.2 g/dL (31.0-37.0); MCV 94.8 fL (80.0-100.0); Mean Platelet Volume 8.4; Monocytes # (A) 0.4 k/uL (0-1.0); Monocytes % (A) 5 %; Neutrophils # (A) 6.2 k/uL (1.3-7.7); Neutrophils % (A) 77 %; Platelet Count 114 k/uL (150-450); RBC 3.15 m/uL (4.30-5.90); RDW 13.1 % (11.5-15.5)
[2024-05-25 13:04] LABS: Appearance,Urine Clear (Clear); Bilirubin,Urine Negative (Negative); Blood,Urine Negative (Negative); Color,Urine Light Yellow; Glucose,Urine (UA) Negative (Negative); Ketones,Urine Negative (Negative); Leukocyte Esterase,Urine Negative (Negative); Nitrite,Urine Negative (Negative); PH, Urine 5.5 (5.0-8.0); Protein,Urine Negative (Negative); Specific Gravity,Urine 1.021 (1.001-1.035); Urobilinogen,Urine <2.0 mg/dL (<2.0)
[2024-05-25 15:15] LABS: Basophils % (A) 0 %; Eosinophils # (A) 0.1 k/uL (0-0.7); Eosinophils % (A) 1 %; HGB 10.3 gm/dL (13.0-17.5); Lymphocytes # (A) 1.4 k/uL (1.0-4.8); Lymphocytes % (A) 21 %; MCH 32.6 pg (25.0-35.0); MCHC 34.3 g/dL (31.0-37.0); MCV 95.1 fL (80.0-100.0); Mean Platelet Volume 7.5; Monocytes # (A) 0.3 k/uL (0-1.0); Monocytes % (A) 4 %; Neutrophils % (A) 73 %; Platelet Count 119 k/uL (150-450); RBC 3.15 m/uL (4.30-5.90); RDW 13.2 % (11.5-15.5); WBC 6.9 k/uL (3.8-10.6)
--- NOTE | 2024-05-25 15:25 | P.GSCN ---
History of Present Illness Consult date: 05/25/24 History of present illness: CHIEF COMPLAINT: Dark stools HISTORY OF PRESENT ILLNESS: This is a 44-year-old male who presented to the hospital with complaints of dark stools that started 3 days ago. Patient reports he started having dark stools with diarrhea Friday and Friday. Also had 2 episodes of vomiting and an episode on Friday and today. The emesis was dark. He said the one this morning may have had some blood clots in it but also could have been from his mixed chambers smoothie that he tried to drink. He denies any abdominal pain. He did have a nosebleed on Friday but reports having dark stools prior to the nosebleed. He does drink alcohol daily about 2-3 beers a day. His stool for occult blood was positive. Hemoglobin on admission was 11.1 and repeat hemoglobin 10.2. Patient admitted to the hospital with a possible upper GI bleed. Surgical service consulted for possible EGD. Patient denies any NSAID use. Denies any prior history of GI bleed. Denies any prior EGD or colonoscopy. Noted in the chart the patient was hypotensive when IV started by paramedics and has now returned to normal. Denies any prior history of esophageal varices. PAST MEDICAL HISTORY: See below PAST SURGICAL HISTORY: See below MEDICATIONS: See below ALLERGIES: See below SOCIAL HISTORY: No illicit drug use. REVIEW OF SYSTEMS: CONSTITUTIONAL: Denies fever or chills. HEENT: Denies blurred vision, vision changes, or eye pain. Denies hemoptysis CARDIOVASCULAR: Denies chest pain or pressure. RESPIRATORY: No shortness of breath. GASTROINTESTINAL: See HPI for pertinent findings HEMATOLOGIC: Denies bleeding disorders. GENITOURINARY: Denies any blood in urine or increased urinary frequency. SKIN: Denies pruitis. Denies rash. PHYSICAL EXAM: VITAL SIGNS: Reviewed GENERAL: Well-developed in no acute distress. HEENT: No sclera icterus. Extraocular movements grossly intact. Moist buccal mucosa. Head is atraumatic, normocephalic. No nasal drainage. ABDOMEN: Soft. Nondistended. Nontender NEUROLOGIC: Alert and oriented. Cranial nerves II through XII grossly intact. LABORATORY DATA: WBC is 6.9 Hgb 11.1 down to 10.3 platelets 119 Sodium 134 potassium 4.1 creatinine 0.71 Stool for occult blood positive IMAGING: ASSESSMENT: 1. Acute GI bleed with dark stools 2. Anemia 3. Daily EtOH use PLAN: -Scheduled for EGD tomorrow with Dr. Montoya -N.p.o. after midnight -Clear liquid diet for today -Continue IV fluids -Continue IV Protonix twice daily -Continue to monitor hemoglobin -Continue to monitor for any signs or symptoms of bleeding -Discussed alcohol cessation Physician Vc++ Developer note has been reviewed by physician. Signing provider agrees with the documented findings, assessment, and plan of care. Past Medical History Past Medical History: Hypertension, Seizure Disorder History of Any Multi-Drug Resistant Organisms: None Reported Past Surgical History: No Surgical Hx Reported Past Psychological History: No Psychological Hx Reported Smoking Status: Never smoker Past Alcohol Use History: Daily Past Drug Use History: None Reported Medications and Allergies Home Medications Medication Instructions Recorded Confirmed Type OXcarbazepine [Trileptal] 750 mg PO BID 11/07/17 05/25/24 History lisinopriL [Zestril] 10 mg PO DAILY@1200 05/25/24 05/25/24 History Allergies Allergy/AdvReac Type Severity Reaction Status Date / Time ondansetron [From Zofran] Allergy Hallucinati Verified 05/25/24 10:26 ons divalproex sodium AdvReac SEE Verified 05/25/24 10:26 [From Depakote] COMMENTS Surgical - Exam Vital Signs Temp Pulse Resp BP Pulse Ox 98.3 F 101 H 20 119/76 97 05/25/24 08:56 05/25/24 08:56 05/25/24 08:56 05/25/24 08:56 05/25/24 08:56 Results - Labs 05/25/24 12:29 05/25/24 09:09 Abnormal Lab Results - Last 24 Hours (Table) 05/25/24 05/25/24 05/25/24 Range/Units 09:09 09:09 10:29 RBC 3.42 L 3.28 L (4.30-5.90) m/uL Hgb 11.1 L 10.6 L (13.0-17.5) gm/dL Hct 32.8 L 31.7 L (39.0-53.0) % Plt Count 118 L (150-450) k/uL Sodium 134 L (137-145) mmol/L BUN 30 H (9-20) mg/dL Glucose 137 H (74-99) mg/dL Total Bilirubin 1.8 H (0.2-1.3) mg/dL Total Protein 6.1 L (6.3-8.2) g/dL 05/25/24 Range/Units 12:29 RBC 3.15 L (4.30-5.90) m/uL Hgb 10.2 L (13.0-17.5) gm/dL Hct 29.9 L (39.0-53.0) % Plt Count 114 L (150-450) k/uL Sodium (137-145) mmol/L BUN (9-20) mg/dL Glucose (74-99) mg/dL Total Bilirubin (0.2-1.3) mg/dL Total Protein (6.3-8.2) g/dL Diabetes panel 05/25/24 Range/Units 09:09 Sodium 134 L (137-145) mmol/L Potassium 4.1 (3.5-5.1) mmol/L Chloride 102 (98-107) mmol/L Carbon Dioxide 23 (22-30) mmol/L BUN 30 H (9-20) mg/dL Creatinine 0.71 (0.66-1.25) mg/dL Glucose 137 H (74-99) mg/dL Calcium 9.2 (8.4-10.2) mg/dL AST 36 (17-59) U/L ALT 43 (4-49) U/L Alkaline Phosphatase 45 (38-126) U/L Total Protein 6.1 L (6.3-8.2) g/dL Albumin 3.8 (3.5-5.0) g/dL Calcium panel 05/25/24 Range/Units 09:09 Calcium 9.2 (8.4-10.2) mg/dL Albumin 3.8 (3.5-5.0) g/dL Pituitary panel 05/25/24 Range/Units 09:09 Sodium 134 L (137-145) mmol/L Potassium 4.1 (3.5-5.1) mmol/L Chloride 102 (98-107) mmol/L Carbon Dioxide 23 (22-30) mmol/L BUN 30 H (9-20) mg/dL Creatinine 0.71 (0.66-1.25) mg/dL Glucose 137 H (74-99) mg/dL Calcium 9.2 (8.4-10.2) mg/dL Adrenal panel 05/25/24 Range/Units 09:09 Sodium 134 L (137-145) mmol/L Potassium 4.1 (3.5-5.1) mmol/L Chloride 102 (98-107) mmol/L Carbon Dioxide 23 (22-30) mmol/L BUN 30 H (9-20) mg/dL Creatinine 0.71 (0.66-1.25) mg/dL Glucose 137 H (74-99) mg/dL Calcium 9.2 (8.4-10.2) mg/dL Total Bilirubin 1.8 H (0.2-1.3) mg/dL AST 36 (17-59) U/L ALT 43 (4-49) U/L Alkaline Phosphatase 45 (38-126) U/L Total Protein 6.1 L (6.3-8.2) g/dL Albumin 3.8 (3.5-5.0) g/dL
--- NOTE | 2024-05-25 16:56 | P.HPIM ---
History of Present Illness H&P Date: 05/25/24 44 year old M with PMH of Seizure disorder and HTN presents to the ED for melanotic stool, nausea and vomiting with blood which has been ongoing since Friday. No use of NSAIDs. Drinks 2 beers daily. Denies any abdominal pain. No history of EGD or C-scope. He denies any headache, LE edema, fever or chills, cough, chest pain, shortness of breath, palpitations, changes in urination. No dizziness, numbness/weakness/tinging of the extremities. In the ED he underwent extensive evaluation. BP 135/68, HR 75, RR 20, 98% on RA. CBC, CMP significant for RBC 3.28, Hg 10.6, Hct 31.7, Na 134, BUN 30, glu 137, T. BIli 1.8, total protein 6.1. UA neg. Stool occult +. EKG NSR. Patient is admitted for further workup and management. General: non toxic, no distress, appears at stated age Derm: warm, dry Head: atraumatic, normocephalic, symmetric Mouth: no lip lesion, mucus membranes moist Cardiovascular: S1S2 reg, no murmur Lungs: Decreased BS bilaterally, no rales , no accessory muscle use Abd: Soft, non tender to palpation Ext: no gross muscle atrophy, no edema, no contractures Neuro: no focal neuro deficits Psych: Alert and oriented. Based on my assessment of this patient, this patient meets a high complexity level of care. Upper GI bleed: Surgery consulted, plans for EGD tomorrow. Protonix 40 mg IV BID. NS at 75 cc/hr. Telemetry monitoring. Repeat CBC in the AM. Transfuse if Hg < 7. Surgery on board. Prerenal azotemia: Likely due to above. IV hydration as above. Hold Lisinopril. Hyperbilirubinemia: Possible hemoconcentration. Repeat in the AM. Seizure disorder: Trilepta 750 mg PO BID. HTN: Hold Lisinopril and monitor vitals. CODE STATUS: FULL CODE. DVT Prophylaxis: SCD GI Prophylaxis: Protonix IV BID Designated medical POA if patient is not able to make medical decisions for them selves: I have reviewed the following bridal consultant notes: Surgery, ED note. I have reviewed the results of the following tests: As above. I have ordered the following tests: CBC and CMP in the AM. I have discussed the care of this patient with the following independent historian: I have independently interpreted the following test below: EKG. I have discussed the management of this patient with the following physician: Past Medical History Past Medical History: Hypertension, Seizure Disorder Additional Past Medical History / Comment(s): hemachromatosis History of Any Multi-Drug Resistant Organisms: None Reported Past Surgical History: No Surgical Hx Reported Past Anesthesia/Blood Transfusion Reactions: No Reported Reaction Past Psychological History: No Psychological Hx Reported Smoking Status: Never smoker Past Alcohol Use History: Daily Past Drug Use History: None Reported Medications and Allergies Home Medications Medication Instructions Recorded Confirmed Type OXcarbazepine [Trileptal] 750 mg PO BID 11/07/17 05/25/24 History lisinopriL [Zestril] 10 mg PO DAILY@1200 05/25/24 05/25/24 History Allergies Allergy/AdvReac Type Severity Reaction Status Date / Time ondansetron [From Zofran] Allergy Hallucinati Verified 05/25/24 10:26 ons divalproex sodium AdvReac SEE Verified 05/25/24 10:26 [From Depakote] COMMENTS Physical Exam Vitals: Vital Signs Temp Pulse Resp BP Pulse Ox 05/25/24 15:11 75 20 135/68 98 05/25/24 14:00 95 20 130/68 98 05/25/24 11:47 90 20 115/82 98 05/25/24 11:00 96 20 115/62 98 05/25/24 09:44 75 20 121/76 98 05/25/24 08:56 98.3 F 101 H 20 119/76 97 Intake and Output 05/25/24 05/25/24 05/25/24 06:59 14:59 22:59 Other: Weight 97.522 kg 97.522 kg Results CBC & Chem 7: 05/25/24 15:11 05/25/24 09:09 Labs: Abnormal Lab Results - Last 24 Hours (Table) 05/25/24 05/25/24 05/25/24 Range/Units 09:09 09:09 10:29 RBC 3.42 L 3.28 L (4.30-5.90) m/uL Hgb 11.1 L 10.6 L (13.0-17.5) gm/dL Hct 32.8 L 31.7 L (39.0-53.0) % Plt Count 118 L (150-450) k/uL Sodium 134 L (137-145) mmol/L BUN 30 H (9-20) mg/dL Glucose 137 H (74-99) mg/dL Total Bilirubin 1.8 H (0.2-1.3) mg/dL Total Protein 6.1 L (6.3-8.2) g/dL 05/25/24 05/25/24 Range/Units 12:29 15:11 RBC 3.15 L 3.15 L (4.30-5.90) m/uL Hgb 10.2 L 10.3 L (13.0-17.5) gm/dL Hct 29.9 L 30.0 L (39.0-53.0) % Plt Count 114 L 119 L (150-450) k/uL Sodium (137-145) mmol/L BUN (9-20) mg/dL Glucose (74-99) mg/dL Total Bilirubin (0.2-1.3) mg/dL Total Protein (6.3-8.2) g/dL Thrombosis Risk Factor Assmnt - Choose All That Apply Any of the Below Risk Factors Present?: No
[2024-05-25] MEDS: PANTOPRAZOLE 40 MG/10 ML VIAL IVP SCH (20:15)
[2024-05-25] MEDS: OXcarbazepine 150 MG TAB PO SCH (20:17)
[2024-05-26 06:15] LABS: HCT 26.1 % (39.0-53.0); MCH 32.3 pg (25.0-35.0); MCHC 33.5 g/dL (31.0-37.0); MCV 96.4 fL (80.0-100.0); Mean Platelet Volume 8.2; RBC 2.71 m/uL (4.30-5.90); RDW 13.7 % (11.5-15.5)
[2024-05-26 06:32] LABS: ALT 38 U/L (4-49); AST 34 U/L (17-59); African American GFR (CKD) >90 (>60 ml/min/1.73 sqM); Albumin 3.2 g/dL (3.5-5.0); Albumin/Globulin Ratio 1.5; Alkaline Phosphatase 43 U/L (38-126); Anion Gap 4 mmol/L; Blood Urea Nitrogen 17 mg/dL (9-20); Calcium 8.4 mg/dL (8.4-10.2); Carbon Dioxide 24 mmol/L (22-30); Chloride 103 mmol/L (98-107); Globulin 2.2 g/dL; Glucose 108 mg/dL (74-99); Non-African American GFR(CKD) >90 (>60 ml/min/1.73 sqM); Potassium 3.7 mmol/L (3.5-5.1); Sodium 131 mmol/L (137-145); Total Bilirubin 1.1 mg/dL (0.2-1.3); Total Protein 5.4 g/dL (6.3-8.2)
[2024-05-26 06:59] LABS: HGB 8.8 gm/dL (13.0-17.5); Platelet Count 76 k/uL (150-450)
[2024-05-26 08:58] LABS: WBC 4.1 k/uL (3.8-10.6)
[2024-05-26] MEDS ORDERED: LIDOCAINE 2% (PF) 20 MG/ML 5 ML VIAL ONE (11:04)
[2024-05-26] MEDS ORDERED: PROPOFOL 10 MG/ML 20 ML VIAL IV ONE (11:04)
[2024-05-26] MEDS: LACTATED RINGERS 1,000 ML IV ONE (11:08)
--- NOTE | 2024-05-26 11:21 | P.PCN ---
Date of Procedure: 05/26/24 Preoperative Diagnosis: Melena GI bleed Postoperative Diagnosis: Melena Gastritis Duodenitis Procedure(s) Performed: EGD with biopsy Anesthesia: MAC Surgeon: Seng Montoya Pathology: other (Biopsy of duodenum and antrum) Condition: stable Disposition: floor Indications for Procedure: 44-year-old male presents secondary to concern for GI bleed and melena. He does have a history of daily alcohol use. Plan is for upper endoscopy for further evaluation. Risks, benefits and alternatives were provided to the patient. All questions answered. Operative Findings: Gastritis and duodenitis, no active bleeding, no active ulcer Description of Procedure: The patient was brought into the endoscopy suite and placed in left lateral decubitus position. Adequate sedation was achieved using conscious sedation. A bite-block was placed and an endoscope was placed in the oropharynx and advanced under endoscopic visualization. The endoscope was advanced through the esophagus into the stomach, through the gastric antrum and in through the pylorus. The third portion of duodenum was visualized. The endoscope was then slowly withdrawn. The first portion of duodenum was noted to have mild inflammatory changes without any active bleeding. Biopsies were taken. No ulcer noted. The antrum was noted to have inflammatory changes with no active bleeding. Biopsies were taken. No obvious ulcer noted. Hemostasis maintained. The gastric body distended normally and the gastric folds appeared normal and flattened with insufflation. A retroflexed view of the fundus and GE junction revealed no significant hiatal hernia. GE junction appeared normal and biopsies were taken. The esophagus appeared endoscopically normal. Excess air was removed and the scope was withdrawn and the procedure was completed. The patient was sent to PACU in stable condition.
--- NOTE | 2024-05-26 12:02 | P.PN ---
Subjective Progress Note Date: 05/26/24 44 year old M with PMH of Seizure disorder and HTN presents to the ED for melanotic stool, nausea and vomiting with blood which has been ongoing since Friday. No use of NSAIDs. Drinks 2 beers daily. Denies any abdominal pain. No history of EGD or C-scope. He denies any headache, LE edema, fever or chills, cough, chest pain, shortness of breath, palpitations, changes in urination. No dizziness, numbness/weakness/tinging of the extremities. In the ED he underwent extensive evaluation. BP 135/68, HR 75, RR 20, 98% on RA. CBC, CMP significant for RBC 3.28, Hg 10.6, Hct 31.7, Na 134, BUN 30, glu 137, T. BIli 1.8, total protein 6.1. UA neg. Stool occult +. EKG NSR. Patient is admitted for further workup and management. Underwent EGD showing mild gastritis. 05/26 Patient was seen and examined. Bowel movements overnight, normal colored. CBC and CMP significant for RBC 2.71, Hg 8.8, Hct 26.1, Plt 76, Na 131, Cr 0.59, glu 108, alb 3.2. General: non toxic, no distress, appears at stated age Derm: warm, dry Head: atraumatic, normocephalic, symmetric Mouth: no lip lesion, mucus membranes moist Cardiovascular: S1S2 reg, no murmur Lungs: Decreased BS bilaterally, no rales , no accessory muscle use Abd: Soft, non tender to palpation Ext: no gross muscle atrophy, no edema, no contractures Neuro: no focal neuro deficits Psych: Alert and oriented. Based on my assessment of this patient, this patient meets a high complexity level of care. Upper GI bleed: Surgery consulted, EGD showing gastritis. Protonix 40 mg IV BID. NS at 75 cc/hr. Telemetry monitoring. Repeat CBC in the AM. Transfuse if Hg < 7. Surgery on board. Thrombocytopenia: Plt 76. Possible due to Trilepta. Monitor. Seizure disorder: Trilepta 750 mg PO BID. HTN: Hold Lisinopril and monitor vitals. Resolved: Hyperbilirubinemia. REYES. CODE STATUS: FULL CODE. DVT Prophylaxis: SCD GI Prophylaxis: Protonix IV BID Designated medical POA if patient is not able to make medical decisions for themselves: I have reviewed the following clinical operations consultant notes: EGD report. I have reviewed the results of the following tests: CBC, CMP. I have ordered the following tests: CBC in the AM. I have discussed the care of this patient with the following independent historian: DONAL. I have independently interpreted the following test below: I have discussed the management of this patient with the following physician: Objective - Vital Signs Vital signs: Vital Signs Temp 98.3 F 05/26/24 07:00 Pulse 86 05/26/24 07:00 Resp 18 05/26/24 07:00 BP 116/69 05/26/24 07:00 Pulse Ox 96 05/26/24 07:00 FiO2 Intake & Output 05/25/24 05/26/24 05/26/24 18:59 06:59 18:59 Intake Total 540 200 Balance 540 200 Weight 97.522 kg Intake: IV 200 Oral 540 Other: Voiding Method Toilet Toilet # Voids 2 # Bowel Movements 1 - Labs CBC & Chem 7: 05/26/24 05:33 05/26/24 05:33 Labs: Abnormal Lab Results - Last 24 Hours (Table) 05/25/24 05/25/24 05/26/24 Range/Units 12:29 15:11 05:33 RBC 3.15 L 3.15 L 2.71 L (4.30-5.90) m/uL Hgb 10.2 L 10.3 L 8.8 L D (13.0-17.5) gm/dL Hct 29.9 L 30.0 L 26.1 L (39.0-53.0) % Plt Count 114 L 119 L 76 L (150-450) k/uL Sodium (137-145) mmol/L Creatinine (0.66-1.25) mg/dL Glucose (74-99) mg/dL Total Protein (6.3-8.2) g/dL Albumin (3.5-5.0) g/dL 05/26/24 Range/Units 05:33 RBC (4.30-5.90) m/uL Hgb (13.0-17.5) gm/dL Hct (39.0-53.0) % Plt Count (150-450) k/uL Sodium 131 L (137-145) mmol/L Creatinine 0.59 L (0.66-1.25) mg/dL Glucose 108 H (74-99) mg/dL Total Protein 5.4 L (6.3-8.2) g/dL Albumin 3.2 L (3.5-5.0) g/dL
[2024-05-26 12:13] VITALS: BMI 28.3
[2024-05-27 06:06] LABS: HCT 23.7 % (39.0-53.0); HGB 8.2 gm/dL (13.0-17.5); MCH 32.9 pg (25.0-35.0); MCHC 34.4 g/dL (31.0-37.0); MCV 95.5 fL (80.0-100.0); Mean Platelet Volume 8.2; RBC 2.49 m/uL (4.30-5.90); RDW 13.3 % (11.5-15.5); WBC 2.6 k/uL (3.8-10.6)
[2024-05-27 06:13] LABS: Platelet Count 65 k/uL (150-450)
[2024-05-27 08:38] VITALS: BP 117/75; PULSE 87; RESP 16; TEMP 98.4
--- NOTE | 2024-05-27 13:02 | P.PN ---
Subjective Progress Note Date: 05/27/24 SURGICAL PROGRESS NOTE CHIEF COMPLAINT: GI bleed and melena HISTORY OF PRESENT ILLNESS: Status post EGD with biopsy. EGD results reported gastritis and duodenitis. Patient is tolerating liquid diet. Hemoglobin stable at 8.2 slightly down from 8.8 yesterday. Patient denies any abdominal pain. He is denies any nausea or vomiting. Denies any black stools. No further bowel movement. PHYSICAL EXAM: VITAL SIGNS: Reviewed. GENERAL: Well-developed in no acute distress. ABDOMEN: Soft. Nondistended. Nontender. NEUROLOGIC: Alert and oriented. Cranial nerves II through XII grossly intact. ASSESSMENT: 1. Acute GI bleed with melanotic stools status post EGD reporting gastritis and duodenitis 2. Acute blood loss anemia 3. Daily EtOH use PLAN: -Advance diet to regular. If patient tolerates regular diet he can be discharge from surgical standpoint -Recommend alcohol cessation -Continue po Protonix at discharge Physician Industrial Twisting Machine Operator note has been reviewed by physician. Signing provider agrees with the documented findings, assessment, and plan of care. Objective - Vital Signs Vital signs: Vital Signs Temp 98.4 F 05/27/24 08:00 Pulse 87 05/27/24 08:00 Resp 16 05/27/24 08:00 BP 117/75 05/27/24 08:00 Pulse Ox 99 05/27/24 08:00 FiO2 Intake & Output 05/26/24 05/27/24 05/27/24 18:59 06:59 18:59 Intake Total 200 Balance 200 Weight 97.522 kg Intake: IV 200 Other: Voiding Method Toilet Toilet Toilet # Voids 2 2 - Labs CBC & Chem 7: 05/27/24 05:31 05/26/24 05:33 Labs: Abnormal Lab Results - Last 24 Hours (Table) 05/27/24 Range/Units 05:31 WBC 2.6 L (3.8-10.6) k/uL RBC 2.49 L (4.30-5.90) m/uL Hgb 8.2 L (13.0-17.5) gm/dL Hct 23.7 L (39.0-53.0) % Plt Count 65 L (150-450) k/uL
[2024-05-27 13:39] LABS: Basophils % (A) 0 %; Eosinophils % (A) 1 %; HCT 24.3 % (39.0-53.0); Lymphocytes # (A) 0.7 k/uL (1.0-4.8); Lymphocytes % (A) 32 %; MCH 31.6 pg (25.0-35.0); MCHC 32.7 g/dL (31.0-37.0); MCV 96.6 fL (80.0-100.0); Monocytes # (A) 0.1 k/uL (0-1.0); Monocytes % (A) 6 %; Neutrophils # (A) 1.2 k/uL (1.3-7.7); Neutrophils % (A) 59 %; Platelet Count 70 k/uL (150-450); RBC 2.52 m/uL (4.30-5.90); RDW 13.6 % (11.5-15.5); WBC 2.1 k/uL (3.8-10.6)
--- NOTE | 2024-05-27 14:00 | P.DS ---
Providers Date of admission: 05/25/24 12:13 Expected date of discharge: 05/27/24 Attending physician: Evangelista Zuniga Consults: 05/25/24 12:10 Consult Physician Routine Consulting Provider: Von Yuo Consult Reason/Comments: Suspect upper GI bleed Do you want consulting provider notified?: Already Contacted Primary care physician: Stated None Hospital Course: 44 year old M with PMH of Seizure disorder and HTN presents to the ED for melanotic stool, nausea and vomiting with blood which has been ongoing since Friday. No use of NSAIDs. Drinks 2 beers daily. Denies any abdominal pain. No history of EGD or C-scope. He denies any headache, LE edema, fever or chills, cough, chest pain, shortness of breath, palpitations, changes in urination. No dizziness, numbness/weakness/tinging of the extremities. In the ED he underwent extensive evaluation. BP 135/68, HR 75, RR 20, 98% on RA. CBC, CMP significant for RBC 3.28, Hg 10.6, Hct 31.7, Na 134, BUN 30, glu 137, T. BIli 1.8, total protein 6.1. UA neg. Stool occult +. EKG NSR. Patient is admitted for further workup and management. Underwent EGD showing mild gastritis. 4/3 Patient was seen and examined. No nausea or vomiting. No bowel movements. CBC shows Hg of 8. Surgery cleared the patient for discharge. Discharge Plan: Refrain from drinking alcohol. Repeat CBC in 3 days to be followed up with PCP. Follow up with PCP within 1-[address] Montoya within 1 week of discharge to discus biopsy results. General: non toxic, no distress, appears at stated age Derm: warm, dry Head: atraumatic, normocephalic, symmetric Mouth: no lip lesion, mucus membranes moist Cardiovascular: S1S2 reg, no murmur Lungs: Decreased BS bilaterally, no rales , no accessory muscle use Abd: Soft, non tender to palpation Ext: no gross muscle atrophy, no edema, no contractures Neuro: no focal neuro deficits Psych: Alert and oriented. Discharge Diagnosis: Upper GI bleed History of EtOH abuse Thrombocytopenia Seizure disorder HTN Resolved: Hyperbilirubinemia. REYES. Patient Condition at Discharge: Stable Plan - Discharge Summary New Discharge Prescriptions: New Pantoprazole [Protonix] 40 mg PO DAILY #30 tab Continue OXcarbazepine [Trileptal] 750 mg PO BID lisinopriL [Zestril] 10 mg PO DAILY@1200 Discharge Medication List OXcarbazepine [Trileptal] 750 mg PO BID 11/07/17 [History] lisinopriL [Zestril] 10 mg PO DAILY@1200 05/25/24 [History] Pantoprazole [Protonix] 40 mg PO DAILY #30 tab 05/27/24 [Rx] Follow up Appointment(s)/Referral(s): None,Stated [Primary Care Provider] - 1-2 days Seng Montoya DO [Doctor of Osteopathic Medicine] - 06/08/24 9:30 am Ambulatory/Diagnostic Orders: Complete Blood Count w/diff [LAB.AMB] Time Frame: 3 Days, Location: None Selected Discharge Disposition: HOME SELF-CARE
== END 2024-05-27 14:42 | disposition home or self-care (01) | DRG 378 ==
LOC: EC 08:55 → 6NMEDSUR 12:12 → OBSVTOIN 12:13 → 6NMEDSUR 14:52
PROVIDERS: ADMIT Student in an Organized Health Care Education/Training Program; ATTEND Student in an Organized Health Care Education/Training Program
PROC: 0DB98ZX Excision of Duodenum, Via Natural or Artificial Opening Endoscopic, Diagnostic (ICD-10-PCS; principal; 2024-05-26 07:30)
PROC: 0DB78ZX Excision of Stomach, Pylorus, Via Natural or Artificial Opening Endoscopic, Diagnostic (ICD-10-PCS; principal; 2024-05-26 07:30)
DX: K29.71 Gastritis, unspecified, with bleeding (principal); D62 Acute posthemorrhagic anemia; D69.6 Thrombocytopenia, unspecified; G40.909 Epilepsy, unspecified, not intractable, without status epilepticus; I10 Essential (primary) hypertension; F10.11 Alcohol abuse, in remission; N17.9 Acute kidney failure, unspecified; I95.9 Hypotension, unspecified; E86.0 Dehydration; R04.0 Epistaxis; E80.6 Other disorders of bilirubin metabolism; Z79.899 Other long term (current) drug therapy
CPT/HCPCS: 36415; 43239; 80053; 81003; 82272; 85025; 85027; 88305; 93005; 96361; 96374; 96376; 99291

== ENCOUNTER → 2024-05-29 | Outpatient (CLI) | payer BC ==
[2024-05-30 06:58] LABS: Basophils # (A) 0.01 X 10*3/uL (0.00-0.10); Basophils % (A) 0.4 %; Eosinophils # (A) 0.01 X 10*3/uL (0.04-0.35); Eosinophils % (A) 0.4 %; HCT 23.3 % (39.6-50.0); Immature Grans, Automated 0 %; Immature Platelet Fraction 6.2 % (1.1-6.1); Lymphocytes # (A) 0.76 X 10*3/uL (0.90-5.00); Lymphocytes % (A) 33.5 %; MCH 33.5 pg (27.0-32.0); MCHC 34.3 g/dL (32.0-37.0); MCV 97.5 FL (80.0-97.0); Mean Platelet Volume 11.9 FL (9.5-12.2); Monocytes # (A) 0.25 X 10*3/uL (0.20-1.00); NRBC Per 100 WBC 0 X 10*3/uL (0.00-0.01); Neutrophils # (A) 1.24 X 10*3/uL (1.80-7.70); Neutrophils % (A) 54.7 %; Platelet Count 71 X 10*3/uL (140-440); RBC 2.39 X 10*6/uL (4.40-5.60); RDW 13.4 % (11.5-14.5); WBC 2.27 X 10*3/uL (4.50-10.00)
== END | disposition home or self-care (01) ==
LOC: LABWHC1 11:04
PROVIDERS: ATTEND Family Medicine
DX: D64.9 Anemia, unspecified (principal)
CPT/HCPCS: 36415; 85025

== ENCOUNTER 2024-06-04 15:14 | Emergency (ER) | payer BC ==
[2024-06-04 15:20] VITALS: TEMP 97.5
--- NOTE | 2024-06-04 16:41 | ED ---
General Adult HPI - General Source: patient, RN notes reviewed Mode of arrival: ambulatory Limitations: no limitations <Rose Mary Guerrero - Last Filed: 06/04/24 16:39> <Paulette Cruz - Last Filed: 06/05/24 14:37> - General Chief complaint: Extremity Problem,Nontraumatic Stated complaint: SHERLYN Leg Swelling Time Seen by Provider: 06/04/24 15:32 - History of Present Illness Initial comments: Quick note44 male presents emergency department for complaint of bilateral lower extremity edema and pain that has been ongoing over the past week. Patient states that this started after he was discharged from the hospital after he was admitted for a GI bleed last week. He denies chest pain or difficulty breathing. (Rose Mary Guerrero) Patient is a 44-year-old gentleman past medical history recent admission for GI bleed presenting today for bilateral lower extremity swelling. States has been ongoing for one week. Extending up to the knees and improves with elevating his legs. Endorses discomfort and soreness along the skin of his legs otherwise denies calf pain. He denies recent injuries. He denies shortness of breath or chest pain, abdominal pain, nausea, vomiting, dizziness, cough, hemoptysis. Does have a history of hereditary hemochromatosis. No history of blood clots. No recent travel. Denies history ACS or CHF. Is not on blood thinners. (Paulette Cruz) - Related Data Home Medications Medication Instructions Recorded Confirmed OXcarbazepine [Trileptal] 750 mg PO BID 11/07/17 05/25/24 lisinopriL [Zestril] 10 mg PO DAILY@1200 05/25/24 05/25/24 Previous Rx's Medication Instructions Recorded Pantoprazole [Protonix] 40 mg PO DAILY #30 tab 05/27/24 Cephalexin [Keflex] 500 mg PO Q6HR 7 Days #28 cap 06/04/24 Allergies Allergy/AdvReac Type Severity Reaction Status Date / Time ondansetron [From Zofran] Allergy Hallucinati Verified 06/04/24 15:20 ons divalproex sodium AdvReac SEE Verified 06/04/24 15:20 [From Depakote] COMMENTS Review of Systems ROS Other: All systems not noted in ROS Statement are negative. <Rose Mary Guerrero - Last Filed: 06/04/24 16:39> ROS Other: All systems not noted in ROS Statement are negative. <Paulette Cruz - Last Filed: 06/05/24 14:37> ROS Statement: Those systems with pertinent positive or pertinent negative responses have been documented in the HPI. Past Medical History Past Medical History: Hypertension, Seizure Disorder Additional Past Medical History / Comment(s): hemachromatosis History of Any Multi-Drug Resistant Organisms: None Reported Past Surgical History: No Surgical Hx Reported Past Anesthesia/Blood Transfusion Reactions: No Reported Reaction Past Psychological History: No Psychological Hx Reported Smoking Status: Never smoker Past Alcohol Use History: Daily Past Drug Use History: None Reported <StielerLindaRose Mary - Last Filed: 06/04/24 16:39> General Exam Limitations: no limitations <Rose Mary Guerrero - Last Filed: 06/04/24 16:39> <Paultete Cruz - Last Filed: 06/05/24 14:37> - General Exam Comments Initial Comments: Visual Physical Exam Vital signs reviewed General: Well-appearing, nontoxic, no acute distress. Head: Normocephalic, atraumatic Eyes: PERRLA, EOMI ENT: Airway patent Chest: Nonlabored breathing Skin: No visual rash, normal skin tone Neuro: Alert and oriented 3 Musculoskeletal: No gross abnormalities (Stieler,Rose Mary) PE: CONSTITUTIONAL: No apparent distress, well appearing SKIN: Warm, dry, no jaundice, hives or petechiae. Mild erythema of the distal right lower extremity not well-circumscribed, skin is dry and cracked EYES: Pupils are equally round, extraocular movements intact without nystagmus, clear conjunctiva, non-icteric sclera HENT: Normocephalic, atraumatic, moist mucus membranes, oropharynx clear without exudates NECK: , Full range of motion, normal appearance PULMONARY: Clear to auscultation without wheezes, rhonchi, or rales, normal excursion, no accessory muscle use and no stridor CARDIOVASCULAR: Regular rate, rhythm, normal S1 and S2. No appreciated murmurs, rubs or gallops. Strong radial pulses with intact distal perfusion. Bilateral lower extremity nonpitting edema up to the ankles GASTROINTESTINAL: Soft, active bowel sounds throughout, non-tender, non- distended, no palpable masses, no rebound or guarding. No hepatosplenomegaly GENITOURINARY: MUSCULOSKELETAL: Extremities have no gross deformity, no edema, redness, or swelling. No calf swelling or calf tenderness to palpation NEUROLOGIC:_a/o x 3, GCS 15, normal mentation and speech. Moves all extremities x 4 without motor or sensory deficit PSYCHIATRIC:_normal mood and affect, thought process is clear and linear (Paulette Cruz) Course Vital Signs 06/04/24 06/04/24 15:16 20:16 Temperature 97.5 F L Pulse Rate 86 78 Respiratory 17 18 Rate Blood Pressure 136/75 127/74 O2 Sat by Pulse 100 100 Oximetry Medical Decision Making <Rose Mary Guerrero - Last Filed: 06/04/24 16:39> - Lab Data Result diagrams: 06/04/24 18:23 06/04/24 18:23 <Paulette Cruz - Last Filed: 06/05/24 14:37> - Medical Decision Making I completed the quick note portion of this chart signed Rose Mary Guerrero PA-C (Rose Mary Guerrero) Was pt. sent in by a medical professional or institution (NANCY Asif, HEAVY MOBILE EQUIPMENT OPERATOR, urgent care, hospital, or fpc...) When possible be specific @ -No Did you speak to anyone other than the patient for history (EMS, parent, family, police, friend...)? What history was obtained from this source @ -No Did you review nursing and triage notes (agree or disagree)? Why? Differential Diagnosis (chest pain, altered mental status, abdominal pain women, abdominal pain men, vaginal bleeding, weakness, fever, dyspnea, syncope, headache, dizziness, GI bleed, back pain, seizure, CVA, palpatations, mental health, musculoskeletal)? Differential diagnose remains broad out of considerations include dependent edema, lymphedema 2/2 hyponatremia or hypoalbuminemia, DVT, CHF, cellulitis this is not an all inclusive list EKG interpreted by me (3pts min.). @ -As above X-rays interpreted by me (1pt min.). @ -None done CT interpreted by me (1pt min.). @ -None done U/S interpreted by me (1pt. min.). I personally reviewed US DVT, I see no evidence of occlusion/ see no noncompressible vessels to suggest DVT, read by radiologist as no DVT What testing was considered but not performed or refused? (CT, X-rays, U/S, labs)? Why? @ -None What meds were considered but not given or refused? Why? @ -None Did you discuss the management of the patient with other professionals (professionals i.e. , PA, HEAVY MOBILE EQUIPMENT OPERATOR, lab, RT, psych nurse, social problems specialist, emergency vehicle technician, teacher, environmental conservation officer, wrapper caser)? Give summary @ -No Was smoking cessation discussed for >3mins.? @ -No Was critical care preformed (if so, how long)? @ -No Were there social determinants of health that impacted care today? How? (Homelessness, low income, unemployed, alcoholism, drug addiction, transportation, low edu. Level, literacy, decrease access to med. care, detention, rehab)? @ -No Was there de-escalation of care discussed even if they declined (Discuss DNR or withdrawal of care, Hospice)? @ -No What co-morbidities impacted this encounter? (DM, HTN, Smoking, COPD, CAD, Cancer, CVA, ARF, Chemo, Hep., AIDS, mental health diagnosis, sleep apnea, morbid obesity)? @ -None Was patient admitted / discharged? Hospital course, mention meds given and route, prescriptions, significant lab abnormalities, going to OR and other pertinent info. @ Discharged- This is a pleasant 44-year-old gentleman presenting today for about a week bilateral lower extremity swelling without shortness of breath or chest pain. ATP labs were ordered, added ultrasound of bilateral lower extremities to evaluated for DVT. I personally reviewed pt's ultrasound, I see no evidence of DVT. Ultrasound was read as negative for DVT by radiologist. Labs reassuring. Discussed with patient findings, discussed with him plan for wearing thigh-high compression stockings as much as possible, increasing protein intake, elevating his legs frequently and following up closely with a PCP. Due to erythema on the distal right lower extremity will start on cephalexin in case early signs of cellulitis. All questions were answered and pt was comfortable with discharge at this point. In my medical judgment there is currently no evidence of an immediate life-threatening or surgical condition. Discharge is therefore indicated at this time. Discharge treatment instructions, follow up instructions, and appropriate emergency department return precautions were discussed with the patient and/or medical decision maker. Patient and/or medical decision maker expressed understanding of and agreed with the treatment plan, follow up instructions, and emergency department return precaution. All patient's and/or medical decision maker's questions were answered. The patient was instructed to return to the ED for any changes in symptoms, persistent symptoms, inability to obtain proper follow-up or for any further concerns. Patient received verbal and written instructions for this condition. Undiagnosed new problem with uncertain prognosis? @ -No Drug Therapy requiring intensive monitoring for toxicity (Heparin, Nitro, Insulin, Cardizem)? @ -No Were any procedures done? @ -No Diagnosis/symptom? @ Bilateral LE swelling, cellulitis of RLE Acute, or Chronic, or Acute on Chronic? @ -acute Uncomplicated (without systemic symptoms) or Complicated (systemic symptoms)? @uncomplicated Side effects of treatment? @ -No Exacerbation, Progression, or Severe Exacerbation? @ -No Poses a threat to life or bodily function? How? (Chest pain, [place], [place], pneumonia, PE, COPD, DKA, ARF, appy, cholecystitis, CVA, Diverticulitis, Homicidal, Suicidal, threat to staff... and all critical care pts) @ -No (Paulette Cruz) - Lab Data Lab Results 06/04/24 06/04/24 06/04/24 Range/Units 18:23 18:23 18:23 WBC 3.23 L (4.50-10.00) 10*3/uL RBC 2.81 L (4.40-5.60) 10*6/uL Hgb 9.2 L (13.0-17.0) g/dL Hct 27.3 L (39.6-50.0) % MCV 97.2 H (80.0-97.0) fL MCH 32.7 H (27.0-32.0) pg MCHC 33.7 (32.0-37.0) g/dL Plt Count 106 L (140-440) 10*3/uL MPV 10.3 (9.5-12.2) fL Immature Gran % (Auto) 1.2 % Neutrophils % 65.7 % Lymphocytes % 22.0 % Monocytes % 10.2 % Eosinophils % 0.6 % Basophils % 0.3 % Immature Gran # 0.04 (0.00-0.04) 10*3/uL Neutrophils # 2.12 (1.80-7.70) 10*3/uL Lymphocytes # 0.71 L (0.90-5.00) 10*3/uL Monocytes # 0.33 (0.20-1.00) 10*3/uL Eosinophils # 0.02 L (0.04-0.35) 10*3/uL Basophils # 0.01 (0.00-0.10) 10*3/uL Immature Plt Fraction 2.5 (1.1-6.1) % PT 11.4 (10.0-12.5) sec INR 1.0 (<1.2) APTT 22.2 (22.0-30.0) sec Sodium 136 L (137-145) mmol/L Potassium 3.5 (3.5-5.1) mmol/L Chloride 102 (98-107) mmol/L Carbon Dioxide 25 (22-30) mmol/L Anion Gap 9 mmol/L BUN 5 L (9-20) mg/dL Creatinine 0.59 L (0.66-1.25) mg/dL Est GFR (CKD-EPI)AfAm >90 (>60 ml/min/1.73 sqM) Est GFR (CKD-EPI)NonAf >90 (>60 ml/min/1.73 sqM) Glucose 87 (74-99) mg/dL Calcium 8.7 (8.4-10.2) mg/dL Magnesium 2.3 (1.6-2.3) mg/dL Total Bilirubin 0.5 (0.2-1.3) mg/dL AST 33 (17-59) U/L ALT 31 (4-49) U/L Alkaline Phosphatase 69 (38-126) U/L NT-Pro-B Natriuret Pep 220 pg/mL Total Protein 6.2 L (6.3-8.2) g/dL Albumin 3.9 (3.5-5.0) g/dL Disposition <Rose Mary Guerrero - Last Filed: 06/04/24 16:39> Is patient prescribed a controlled substance at d/c from ED?: No <Paulette Cruz - Last Filed: 06/05/24 14:37> Clinical Impression: Cellulitis, Swelling of both lower extremities Disposition: HOME SELF-CARE Condition: Good Instructions (If sedation given, give patient instructions): Cellulitis (ED), Leg Edema (ED) Additional Instructions: Every disease is a spectrum and a small chance still exists that a serious condition could develop, for this reason, please monitor yourself closely for new, changing or worsening symptoms, symptoms that do not begin to improve with suggested interventions in the next 48 hours, uncontrollable pain, shortness of breath, coughing up blood, chest pain, fevers, spreading of redness despite of antibiotics, inability to tolerate/keep down fluids or your medications, inability to follow up with outpatient providers as instructed and should you experience these symptoms or should you have any further concerns for your wellbeing please return to the ED or call 911 immediately. Please get plenty of rest. Please increase your protein intake with lean protein such as eggs, chicken, lean beef, protein shakes. Elevate your legs frequently. Wear thigh-high compressive stockings as much as possible. PLEASE call your primary care physician as soon as possible to arrange / discuss plan for followup appointment. Appointment in the next 1-3 days is strongly encouraged if possible. PLEASE let us know here before you leave if there is anything further we can do to be of any assistance. Take care and feel Better! Prescriptions: Cephalexin [Keflex] 500 mg PO Q6HR 7 Days #28 cap Referrals: None,Stated [Primary Care Provider] - 1-2 days Forms: Area PCPs
[2024-06-04 18:34] LABS: Basophils # (A) 0.01 10*3/uL (0.00-0.10); Basophils % (A) 0.3 %; Eosinophils # (A) 0.02 10*3/uL (0.04-0.35); Eosinophils % (A) 0.6 %; HCT 27.3 % (39.6-50.0); HGB 9.2 g/dL (13.0-17.0); Immature Platelet Fraction 2.5 % (1.1-6.1); Lymphocytes # (A) 0.71 10*3/uL (0.90-5.00); MCH 32.7 pg (27.0-32.0); MCHC 33.7 g/dL (32.0-37.0); MCV 97.2 fL (80.0-97.0); Mean Platelet Volume 10.3 fL (9.5-12.2); Monocytes # (A) 0.33 10*3/uL (0.20-1.00); Monocytes % (A) 10.2 %; Neutrophils # (A) 2.12 10*3/uL (1.80-7.70); Neutrophils % (A) 65.7 %; Platelet Count 106 10*3/uL (140-440); RBC 2.81 10*6/uL (4.40-5.60); RDW 13.9 % (11.5-14.5); WBC 3.23 10*3/uL (4.50-10.00)
[2024-06-04 18:48] LABS: Partial Thromboplastin Time 22.2 sec (22.0-30.0); Prothrombin Time 11.4 sec (10.0-12.5)
[2024-06-04 19:05] LABS: ALT 31 U/L (4-49); AST 33 U/L (17-59); African American GFR (CKD) >90 (>60 ml/min/1.73 sqM); Albumin 3.9 g/dL (3.5-5.0); Alkaline Phosphatase 69 U/L (38-126); Anion Gap 9 mmol/L; Blood Urea Nitrogen 5 mg/dL (9-20); Calcium 8.7 mg/dL (8.4-10.2); Carbon Dioxide 25 mmol/L (22-30); Chloride 102 mmol/L (98-107); Glucose 87 mg/dL (74-99); Magnesium 2.3 mg/dL (1.6-2.3); Non-African American GFR(CKD) >90 (>60 ml/min/1.73 sqM); Potassium 3.5 mmol/L (3.5-5.1); Sodium 136 mmol/L (137-145); Total Bilirubin 0.5 mg/dL (0.2-1.3); Total Protein 6.2 g/dL (6.3-8.2)
[2024-06-04 19:11] LABS: NT-Pro-B-Type Natriuretic Pept 220 pg/mL
--- NOTE | 2024-06-04 19:46 | US ---
EXAMINATION TYPE: US venous doppler duplex LE BI DATE OF EXAM: 06/04/2024 7:28 PM COMPARISON: NONE CLINICAL INDICATION: Male, 44 years old with history of LE swelling recent admission; Leg swelling x 4 days, no known prior DVT, not on blood thinners , Pain TECHNIQUE: The lower extremity deep venous system is examined utilizing real time linear array sonog erickson with graded compression, color doppler sonography, and spectral doppler. SIDE PERFORMED: Bilateral FINDINGS: VESSELS IMAGED: Common Femoral Vein Deep Femoral Vein Greater Saphenous Vein * Femoral Vein Popliteal Vein Small Saphenous Vein * Proximal Calf Veins (* superficial vessels) Right Leg: Negative for DVT, Color Doppler imaging shows patency of the vessels. Spectral waveforms are within normal limits. Left Leg: Negative for DVT, Color Doppler imaging shows patency of the vessels. Spectral waveforms a re within normal limits. IMPRESSION: Bilateral lower extremity ultrasound negative for deep venous thrombosis. [facility], , 06/04/2024 7:44 PM
[2024-06-04 20:18] VITALS: BP 127/74; PULSE 78; RESP 18
[2024-06-04] MEDS: CEPHALEXIN 500MG STARTER PACK 4 CAP BTL PO STA (20:44)
== END 2024-06-04 20:49 | disposition home or self-care (01) ==
LOC: EC 15:14
DX: M79.89 Other specified soft tissue disorders (principal); L03.90 Cellulitis, unspecified; E83.110 Hereditary hemochromatosis; Z88.8 Allergy status to other drugs, medicaments and biological substances
CPT/HCPCS: 36415; 80053; 83735; 83880; 85025; 85610; 85730; 93970; 99284

== ENCOUNTER 2024-07-08 09:55 | Day surgery (SDC) | payer BC ==
[2024-07-06 13:48] VITALS: BMI 30.9
[2024-07-08] MEDS: IV FLUID CONTINUATION 1,000 ML IV ONE (10:47)
[2024-07-08 10:58] VITALS: TEMP 97.6
[2024-07-08] MEDS: LACTATED RINGERS 1,000 ML IV SCH (11:01)
[2024-07-08] MEDS ORDERED: PROPOFOL 10 MG/ML 20 ML VIAL IV ONE (11:46)
--- NOTE | 2024-07-08 12:00 | P.PCN ---
Date of Procedure: 07/08/24 Preoperative Diagnosis: History of GI bleed Postoperative Diagnosis: History of GI bleed Internal hemorrhoid Procedure(s) Performed: Colonoscopy Anesthesia: MAC Surgeon: Seng Montoya Pathology: none sent Condition: stable Disposition: same day Indications for Procedure: 44-year-old male with recent hospitalization secondary to gross GI bleed. Plan is for colonoscopy for further workup. Risks, benefits and alternatives were provided to the patient. EGD has already been completed in the past. Operative Findings: Overall normal-appearing colon with internal hemorrhoid Description of Procedure: The patient was brought to the endoscopy suite and placed in left lateral decubitus position and adequate sedation was achieved using conscious sedation. Digital rectal exam was performed and mild internal hemorrhoids were palpated. An endoscope was then placed in the rectum and advanced to the cecum as identified by landmarks including the appendiceal orifice and the ileocecal valve. The prep was good. The colonoscope was then slowly withdrawn, examining for any mucosal abnormalities. The cecum, ascending, transverse, descending and sigmoid colon were visualized adequately. There were no large neoplastic lesions noted throughout the colon. No significant evidence of diverticulosis. Hemostasis was maintained. Retroflexion was performed in the rectum and internal hemorrhoids. Excess air was removed, the colonoscope withdrawn and the procedure terminated. The patient was then transferred to the recovery unit in stable condition. Repeat colonoscopy should be performed in 10 years.
[2024-07-08 12:05] VITALS: RESP 14
[2024-07-08 12:16] VITALS: BP 111/70; PULSE 70
== END 2024-07-08 13:02 | disposition home or self-care (01) ==
LOC: ORWHC2ENDO 09:55
PROVIDERS: ATTEND Surgery
DX: K64.8 Other hemorrhoids (principal); G40.909 Epilepsy, unspecified, not intractable, without status epilepticus; I10 Essential (primary) hypertension; Z87.891 Personal history of nicotine dependence; Z79.899 Other long term (current) drug therapy; Z88.8 Allergy status to other drugs, medicaments and biological substances
CPT/HCPCS: 45378; J2704